=== PATIENT | male | born 1960 | race Hispanic/Latino ===

== ENCOUNTER 2024-08-24 06:23 | Day surgery (SDC) | payer OTHER, SELFPAY ==
[2024-08-24] VITALS (13 sets, daily range): BP systolic 54–200; BP diastolic 39–111; BMI 29.0
[2024-08-24] MEDS: CELEBREX 200 MG PO (12:40)
[2024-08-24] MEDS: TYLENOL 1000 MG PO (12:40)
[2024-08-24] MEDS: DEMEROL 12.5 MG IV ×2 (15:45→16:05)
--- NOTE | 2024-08-24 16:01 | W.IMMPOSTOP ---
Surgical Immed Post Op Note
-
Primary Surgeon: Marcus Ragland MD
Assisting Surgeon: None
Pre-op Diagnosis: Bleeding internal hemorrhoids, anal skin tag
Post-op Diagnosis: Bleeding internal hemorrhoids, anal skin tags
Procedure Performed: Closed hemorrhoidectomy, THD x 1, suture ligation x 1
Anesthesia Type: Sedation with local
Specimen / Cultures: Right anterior hemorrhoid
Estimated Blood Loss: 20 mL
Complications: Difficulty with sedation (when sedation was deep, patient would not oxygenate; when sedation was lightened, patient kept moving)
Operative Findings: Anal skin tags were associated with the internal hemorrhoid columns; right anterior internal hemorrhoid too large for THD, so performed a closed hemorrhoidectomy; performed THD to the right posterior internal hemorrhoid;
performed suture ligation to left posterior internal hemorrhoid
--- NOTE | 2024-08-24 16:04 | OR.RPT ---
Operative Report
Operative Report
DATE OF OPERATION: 08/24/2024
SURGEON: Marcus Ragland MD
PREOPERATIVE DIAGNOSIS: Bleeding internal hemorrhoids, anal skin tags
POSTOPERATIVE DIAGNOSIS: Bleeding internal hemorrhoids, anal skin tags
OPERATION: Exam under anesthesia, closed hemorrhoidectomy x 1, transanal hemorrhoid dearterialization x 1, suture hemorrhoidopexy x 1, bilateral pudendal nerve block
ASSISTANTS:
1. None
ANESTHESIA: Sedation with local
ESTIMATED BLOOD LOSS: 20 mL
FINDINGS:
1. Skin tags noted in the right anterior, right posterior, and left lateral positions around the anal verge
2. Largest internal hemorrhoid with evidence of prolapse on anoscopy was noted in the right anterior position, too large for THD; performed Celeste-type hemorrhoidectomy
3. Moderate-sized internal hemorrhoid with evidence of prolapse on anoscopy in the right posterior position; performed THD
4. Small internal hemorrhoid in the left anterior position; performed suture hemorrhoidopexy
SPECIMENS:
1. Right anterior hemorrhoid
DRAINS: None
COMPLICATIONS: Difficulty with sedation; patient would have difficulty ventilating if sedation was too deep, but would move if sedation was too light despite local anesthesia
INDICATIONS: The patient is a 64-year-old male who presented with recurrence of bleeding internal hemorrhoids with a component of prolapse. In the past, he underwent rubber band ligation, but his hemorrhoids recurred. Therefore, the patient was
recommended to have surgery. I explained that a suture hemorrhoidopexy under THD guidance would be the plan for any concerning internal hemorrhoid. However, if a hemorrhoid identified on exam under anesthesia is too large for a suture
hemorrhoidopexy, I would perform an excisional hemorrhoidectomy. The operation was discussed with the patient in detail, including the risks, benefits and alternatives. Risks described included, but not limited to, bleeding, infection, urinary
retention, damage to nearby structures such as the anal sphincter, fecal incontinence, anal stenosis, recurrence, and anesthetic risks. The patient understood and agreed to proceed. The consent was signed and placed in the chart.
PROCEDURE IN DETAIL: The patient was taken to the operating room. The patient was then placed on the operating table in prone position. Sequential compression devices were placed bilaterally. Sedation was commenced without complication. Two seat
belts were secured around the legs and upper back. The buttocks were taped apart. The perineum was shaved, prepped and draped in the usual fashion. A time-out was performed verifying the correct patient, procedure, operative site, positioning, and
special equipment.
Local anesthesia used was a mixture of 60 mL of 0.25% Marcaine with epinephrine and 0.6 mg of dexamethasone. 40 mL was injected perianally at the beginning of the case. The anorectal exam was performed assessing all four quadrants of the anal canal
using Hill-Celeste retractors in progressively increasing size. The patient had pendulous anal skin tags in the right anterior, right posterior and left lateral positions along the anal verge, associated with the usual internal hemorrhoid columns.
He did not have concerning external hemorrhoids. He had a large internal hemorrhoid in the right anterior position that easily prolapsed upon withdrawal of the Hill-Celeste. He had a moderate-sized internal hemorrhoid in the right posterior
position that also had evidence of prolapse. There was no significant internal hemorrhoid in the left lateral position, but there was a small internal hemorrhoid in the left anterior position. There was no proctitis and no other concerning
findings on anoscopy.
I elected to proceed with an excisional hemorrhoidectomy for the right anterior hemorrhoid. Any suture ligation technique would likely be inadequate for this large of a hemorrhoid. I began by grasping the hemorrhoid with 3 clamps and elevating it.
The anoderm was incised immediately around the distal aspect of the hemorrhoid. Hemostasis was achieved with electrocautery. Using Metzenbaum scissors, the hemorrhoid was carefully dissected off of the sphincter complex avoiding injury to it. A
large curved clamp was placed under the hemorrhoid, taking care to avoid clamping any sphincter. A 15 blade was used to excise the hemorrhoid off the clamp. The hemorrhoid was passed off for specimen. A 2-0 Vicryl was then thrown around the
pedicle and tied down, leaving a long tail. The mucosa was reapproximated using this 2-0 Vicryl in a running fashion to the level of the dentate line. This was then run back to the pedicle in a locking fashion. The 2-0 Vicryl was tied down to the
tail around the pedicle, ligating it a third time. Another 2-0 Vicryl was used to close the defect of the anoderm in a running fashion. Hemostasis was confirmed.
I elected to proceed with suture ligation and hemorrhoidopexy using THD guidance for the right posterior hemorrhoid. Using the THD retractor with U/S probe, the hemorrhoid was exposed. I ligated the pedicle of the hemorrhoid after identifying it
with audible doppler signal with a 2-0 Vicryl in a figure-of-8 fashion, leaving the tail long. I did note a submucosal hematoma form at my [id number] stitch. I tied down the [id number] and held pressure to the area. The hematoma
stabilized. I took running mucosal bites of the hemorrhoid distally toward the dentate line, stopping 1 cm above the dentate line. I tied this down to the long tail in order to pexy the hemorrhoid. Hemostasis was confirmed. I reassessed the
hematoma and it had actually decreased in size, but was still present.
Up until this point, anesthesia was struggling to keep the patient sedated with adequate pain control without affecting ventilation. However, I was able to continue with the procedure with anesthesia making continual adjustments. At this point,
the patient was becoming more uncomfortable and was moving more frequently. Fortunately, I only had 1 hemorrhoid left and it was small. Therefore, I performed a suture ligation for this hemorrhoid. Using a Hill-Celeste retractor, the hemorrhoid
was exposed. I ligated the pedicle of the hemorrhoid with a 2-0 Vicryl in a figure-of-8 fashion, leaving the tail long. I took running mucosal bites of the hemorrhoid distally toward the dentate line, stopping 1 cm above the dentate line. I tied
this down to the long tail in order to pexy the hemorrhoid. Hemostasis was confirmed. The anal canal was irrigated copiously with saline, checking for hemostasis, which was ensured. At this point, the patient was moving a significant amount and I
felt any further procedure would put the patient at risk. Therefore, I elected to leave the remaining skin tags alone.
The remaining 20 mL of local were injected. 5 mL was injected bilaterally for a pudendal nerve block. 10 mL was injected around the surgical site and perianally. The smallest Hill-Celeste was used to check hemostasis once more, which was
confirmed. Surgicel was placed in the anal canal prophylactically.
At this point, the procedure was complete. All needle, sponge and instrument counts were correct. The patient tolerated the procedure well and was transferred to the recovery room in stable condition with gauze dressing in place secured with silk
tape.
DICTATED BY: Marcus Ragland MD
== END 2024-08-24 17:51 | disposition home or self-care (01) ==
LOC: SDS 06:23
PROVIDERS: ATTENDING PHYSICIAN Surgery
DX: K64.8 Other hemorrhoids (principal); K64.4 Residual hemorrhoidal skin tags
CPT/HCPCS: 46948; 88304